=== PATIENT | female | born 1980 | race Caucasian/White ===

== ENCOUNTER 2018-02-22 23:39 | Emergency (ER) | payer MEDICAID ==
[2018-02-23] MEDS: KETOROLAC 30 MG INJ IV (05:25)
[2018-02-23] MEDS: CLINDAMYCIN 600 MG/D5W (PMX) 50 ML IVPB (05:26)
== END 2018-02-23 05:00 | disposition home or self-care (01) ==
LOC: FTE 23:39
DX: S80.861A Insect bite (nonvenomous), right lower leg, initial encounter (principal); L03.115 Cellulitis of right lower limb; L08.9 Local infection of the skin and subcutaneous tissue, unspecified; F17.210 Nicotine dependence, cigarettes, uncomplicated; W57.XXXA Bitten or stung by nonvenomous insect and other nonvenomous arthropods, initial encounter; Y92.9 Unspecified place or not applicable
CPT/HCPCS: 99283; J1885

== ENCOUNTER 2018-11-20 16:56 | Emergency (ER) | payer SELFPAY, MEDICAID ==
[2018-11-20] MEDS: ACETAMINOPHEN 325 MG TAB PO (17:37)
[2018-11-20] MEDS: CEFTRIAXONE 1 GM INJ IM (18:50)
[2018-11-20] MEDS: KETOROLAC 30 MG INJ IM (18:53)
== END 2018-11-20 19:52 | disposition home or self-care (01) ==
LOC: FTE 16:56
DX: J18.1 Lobar pneumonia, unspecified organism (principal); F17.210 Nicotine dependence, cigarettes, uncomplicated
CPT/HCPCS: 71045; 81025; 87400; 96372; 99284-25